=== PATIENT | female | born 1995 | race Caucasian/White ===

== ENCOUNTER 2018-10-10 03:57 | Emergency (ER) | payer MEDICAID ==
[~2018-10-10] VITALS: Ht 180.3 cm; Wt 61.3 kg
[2018-10-10 04:01] VITALS: Ht 180.3 cm; Wt 61.3 kg
[2018-10-10 05:02] VITALS: BP 112/65
== END 2018-10-10 05:02 | disposition home or self-care (01) ==
LOC: ED 03:57
DX: J06.9 Acute upper respiratory infection, unspecified (principal)